=== PATIENT | female | born 1990 | race Caucasian/White ===

== ENCOUNTER 2018-10-16 12:46 | Emergency (ER) | payer BC, OTHER ==
[2018-10-16 12:58] VITALS: BP 112/72
--- NOTE | 2018-10-16 13:18 | EDPHY ---
H & P Time Seen by Provider: 10/16/18 13:00 HPI/ROS: CHIEF COMPLAINT: Left hip and buttock pain History by patient HISTORY OF PRESENT ILLNESS: 28-year-old woman who is 7 weeks presents complaining of acute onset severe sharp shooting pains in her left hip and buttock going down to her leg and sometimes her toes. Symptoms began when she woke this morning and tried to get out of bed. Pain is worse on precipitated by change in position. She says the feels better lying down and sitting up. She is able to walk without difficulty. She denies any difficulty with bowel or bladder control. She complains of some subjective numbness at the area of her groin crease her in her knee and her great toe. She denies any leg weakness but says that overall her leg feels "heavy". She tried taking some Tylenol with minimal relief. She canceled and out of town weekend trip today because of the pain. REVIEW OF SYSTEMS: As in HPI, and all other systems reviewed and are negative Smoking Status: Never smoked Physical Exam: General Appearance: Alert, nontoxic-appearing. Head: Normocephalic, atraumatic Eyes: Pupils equal and round, no pallor or injection. ENT, Mouth: Mucous membranes moist. Neck: No bony tenderness, full range of motion Gastrointestinal: Abdomen is soft and nontender, no masses, bowel sounds normal. Neurological: Awake, alert and oriented x 3, no pronator drift, normal gait, no pronator drift, DTRs 2+ and equal bilaterally in knees and ankles, no pain with straight leg raise, strength is 5/5 and equal bilaterally in lower extremities, sensation intact bilateral lower extremities Back: No bony tenderness, no CVA tenderness, mild left buttock tenderness Pelvis: Stable nontender, no inguinal tenderness or nodes Skin: Warm and dry, no rashes. Musculoskeletal: Neck is supple, FROM left hip, knee and ankle, full extension flexion of left hip and internal external rotation without pain. DP and PT pulses 2+ and equal bilaterally. Psychiatric: Patient has normal affect, there is no agitation. Constitutional: Initial Vital Signs Temperature (C) 36.7 C 10/16/18 12:56 Heart Rate 74 10/16/18 12:56 Respiratory Rate 18 10/16/18 12:56 Blood Pressure 112/72 10/16/18 12:56 O2 Sat (%) 97 10/16/18 12:56 O2 Delivery Mode Room Air Allergies/Adverse Reactions: adhesive Allergy (Verified 10/16/18 12:55) Home Medications: Medication Instructions Recorded [place] 10/16/18 Lidocaine [Lidoderm] 1 each TP DAILY PRN #30 adh..patch 10/16/18 MDM/Departure - [facility] ED Course/Re-evaluation: 28-year-old woman presents with classical sciatica symptoms. There is no evidence of neurological impairment, cauda equina syndrome or significant disability. We will give the patient a trial of topical lidocaine patches and continue and acetaminophen. We discussed how and has run safe during . I offered the patient a small amount of opioid pain medicine but she preferred to avoid this during . - Depart Disposition: Home, Routine, Self-Care Clinical Impression: Sciatica of left side Condition: Fair Instructions: Sciatica (ED) Additional Instructions: You were seen by Dr. Carly Pa today. You have sciatica. I recommend physical therapy was strongly recommend to keep her appointment they have scheduled later today. For symptom relief you may try topical lidocaine patches and Tylenol (acetaminophen) a 1000 mg 4 times daily. You should avoid nonsteroidal anti-inflammatory pain medicines such as ibuprofen and naproxen during . Return for any worsening or new concerns. Prescriptions: Lidocaine [Lidoderm] 1 each TP DAILY PRN #30 adh..patch PRN Reason: pain Referrals: NONE *PRIMARY CARE P,. [Primary Care Provider] - As per Instructions
== END 2018-10-16 13:24 | disposition home or self-care (01) ==
LOC: CED 12:46
DX: M54.32 Sciatica, left side (principal); Z33.1 Pregnant state, incidental; Z3A.01 Less than 8 weeks gestation of pregnancy
CPT/HCPCS: 99283-ER